=== PATIENT | female | born 1965 | race Caucasian/White ===

== ENCOUNTER → 2023-10-21 06:34 | Outpatient (REF) | payer OTHER, SELFPAY | LOC: HWWDC 06:34 | PROVIDERS: ATTENDING PHYSICIAN Family Medicine | DX: Z12.31 Encounter for screening mammogram for malignant neoplasm of breast (principal) | CPT/HCPCS: 77063; 77067 ==

== ENCOUNTER → 2023-10-29 14:25 | Outpatient (REF) | payer OTHER, SELFPAY | LOC: RAD 14:25 | PROVIDERS: ATTENDING PHYSICIAN Family Medicine | DX: M25.512 Pain in left shoulder (principal) | CPT/HCPCS: 73030 ==

== ENCOUNTER → 2024-03-13 07:52 | Outpatient (REF) | payer SELFPAY | LOC: HWRAD 07:52 | PROVIDERS: ATTENDING PHYSICIAN Family Medicine | DX: Z13.6 Encounter for screening for cardiovascular disorders (principal) | CPT/HCPCS: 75571 ==

== ENCOUNTER → 2024-03-13 08:14 | Outpatient (REF) | payer OTHER, SELFPAY | LOC: HWRAD 08:14 | PROVIDERS: ATTENDING PHYSICIAN Family Medicine | DX: Z13.820 Encounter for screening for osteoporosis (principal) | CPT/HCPCS: 77080 ==

== ENCOUNTER → 2024-10-23 06:55 | Outpatient (REF) | payer OTHER, SELFPAY | LOC: HWWDC 06:55 | PROVIDERS: ATTENDING PHYSICIAN Nurse Practitioner Adult Health; FAMILY PHYSICIAN Family Medicine | DX: Z12.31 Encounter for screening mammogram for malignant neoplasm of breast (principal) | CPT/HCPCS: 77063; 77067 ==

== ENCOUNTER 2025-05-06 20:23 | Emergency (ER) | payer OTHER, SELFPAY ==
[2025-05-06 20:24] VITALS: BP 111/65
--- NOTE | 2025-05-06 22:16 | ED.GENMED ---
History of Present Illness
General
Chief Complaint: Head Injury
Source: patient
Exam Limitations: none
Time Seen by Provider: 05/06/25 22:00
Nursing documentation reviewed up to this point in time: agreed with
History of Present Illness
History of Present Illness:
60-year-old female presenting to the emergency department today with concerns of injury to her head from a parking garage gate that hit her in the head. She did fall to the ground but did not lose consciousness. Did have some pain to the top of
her head since which is now resolved. Denies nausea vomiting did have some ringing over years initially which is resolved. Denies additional concern at this time. No breaks in the skin.
Past History
Past History
ED Past Medical History: None
ED Past Surgical History: None
Social History
Tobacco: Non-smoker
Personal:
Living: with family
Family History
Family History: Negative Early CAD
Review of Systems
Review of Systems
Allergies reviewed?: Yes
All Other Systems: ROS reviewed and negative except as documented in HPI and ROS
Phy Exam
Physical Exam
Physical Exam:
GENERAL: Alert , in no apparent distress
EYE: pupils equal and reactive
NECK: Supple, no significant adenopathy.
ENT: o/p clr, mmm.
CARDIAC: Regular rate and rhythm .
LUNGS: Clear breath sounds bilaterally, no acute respiratory distress, no wheezes/rales/rhonchi
ABDOMEN: Soft, without focal tenderness, no r/g, no cvat
NEUROLOGICAL: Alert and oriented, no focal neuro deficits
SKIN: Warm and dry, skin intact.
MUSCULOSKELETAL: No edema, well perfused.
PSYCH: Normal and appropriate interaction.
Course
Orders/Labs/Results
Orders:
Orders
05/06/25 20:28
CT Head W/o Iv Contrast Urgent
Comment:
Reason For Exam: head injury
Vital Signs
Initial and Last Documented VS:
Initial Vital Signs
Temp Pulse Resp BP Pulse Ox
97.8 F 67 20 111/65 100
05/06/25 20:24 05/06/25 20:24 05/06/25 20:24 05/06/25 20:24 05/06/25 20:24
Last Documented Vital Signs
Temp Pulse Resp BP Pulse Ox
97.8 F 67 20 111/65 100
05/06/25 20:24 05/06/25 20:24 05/06/25 20:24 05/06/25 20:24 05/06/25 20:24
MDM/Problems Addressed
MDM/Problems Addressed:
60-year-old female presenting to the emergency department after being hit in the top of the head with a parking gate. Did not lose consciousness did initially have some ringing of her ears. Otherwise feels well at this point. Vital signs are
normal. No numbness or weakness. No neck pain. Not on blood thinners. CT scan was obtained without emergent findings. Patient appears stable for discharge. Return precautions given.
*Pulse Oximetry
SaO2: 100
Oxygen Mode of Delivery: Room air
Patient hypoxic: no (100)
*Critical Care Note
Total Time (30-74mins, 75-104mins- exclusive of procedures): Not Applicable
ED Attending Note
-
Portions of this chart may have been created with voice recognition software.� Occasional wrong word or��sound alike� substitutions may have occurred due to the inherent limitations of voice recognition software.
Discharge Plan
Departure
Patient Disposition: Home (Routine Discharge)
Date of Disposition: 05/06/25
Time of Disposition: 22:20
Patient with high blood pressure during this ER visit?: No
Condition: Good
Covid-19: Not Applicable
Discharge Problem:
Minor head injury
Instructions: Minor Head Injury (DC)
Prescriptions:
No Action
mupirocin 1 APPLIC ointment
0 applic topical TID Qty: 1 0RF
Referrals:
Keesha Manzano DO [Family Provider, Family Practice]
Activity Restrictions/Additional Instructions:
You came to the emergency department today after head injury. Here you have a reassuring assessment normal head CT. Please take it easy over the next few days and return for any worsening, new or concerning symptoms.
Interventions
Interventions:
*General Assessment Last Done: 05/06/25 20:24
*Neglect/Abuse Screening Last Done: 05/06/25 20:24
*ED COVID-19 Vaccine History Last Done: 05/06/25 21:20
*ED Influenza Vaccine History Last Done: 05/06/25 21:20
[facility] Fall Risk Assessment Tool Last Done: 05/06/25 21:22
*Risk Screen - Suicide (C-SSRS) Last Done: 05/06/25 20:24
ED- Neurological Assessment Last Done: 05/06/25 21:22
ED-Skin Assessment Last Done: 05/06/25 21:22
Discharge Date and Time
Print Language: CONGOLESE
== END 2025-05-06 22:28 | disposition home or self-care (01) ==
LOC: EMR 20:23
PROVIDERS: EMERGENCY PHYSICIAN Student in an Organized Health Care Education/Training Program; FAMILY PHYSICIAN Family Medicine
DX: S09.90XA Unspecified injury of head, initial encounter (principal); W20.8XXA Other cause of strike by thrown, projected or falling object, initial encounter; Y92.59 Other trade areas as the place of occurrence of the external cause
CPT/HCPCS: 99284; 70450